=== PATIENT | male | born 1990 | race Two or more races ===

== ENCOUNTER 2017-07-06 21:41 | Emergency (ER) | payer SELFPAY ==
[~2017-07-06] VITALS: Ht 175.3 cm; Wt 90.7 kg
--- NOTE | 2017-07-06 22:13 | NUR ---
Patient discharged to home in stable conditon. Written and verbal after care instructions given. Patient verbalizes understanding of instructions.
[2017-07-06 22:14] VITALS: BP 148/92
== END 2017-07-06 22:14 | disposition home or self-care (01) ==
LOC: ER 21:42
DX: K08.89 Other specified disorders of teeth and supporting structures (principal)
CPT/HCPCS: 99283; A4663

== ENCOUNTER 2017-12-14 13:20 | Emergency (ER) | payer SELFPAY ==
[~2017-12-14] VITALS: Ht 177.8 cm; Wt 77.1 kg
--- NOTE | 2017-12-14 14:25 | NUR ---
PT WAS EVALUATED BY DR EDWARDS. PT WAS D/C TO HOME. D/C INSTRUCTIONS GIVEN TO THE PT.
[2017-12-14 14:55] VITALS: BP 129/71
== END 2017-12-14 14:56 | disposition home or self-care (01) ==
LOC: ER 13:20
DX: K08.89 Other specified disorders of teeth and supporting structures (principal)
CPT/HCPCS: A4663